=== PATIENT | male | born 1960 | race Caucasian/White ===

== ENCOUNTER 2020-09-29 09:05 | Outpatient (CLI) | payer OTHER | END 2020-09-29 09:06 | disposition home or self-care (01) | LOC: SCSMRI 09:05 | PROVIDERS: ATTEND Orthopaedic Surgery | DX: M47.26 Other spondylosis with radiculopathy, lumbar region (principal); M43.16 Spondylolisthesis, lumbar region | CPT/HCPCS: 72148 ==

== ENCOUNTER 2021-02-07 11:07 | Outpatient (CLI) | payer OTHER ==
[2021-02-07 12:58] LABS: Hemoglobin 12.6 g/dL (13.5-17.5); Mean Corpuscular HGB CONC 32.9 g/dL (32.0-36.0); Mean Corpuscular Hemoglobin 33.6 pg (27.0-33.0); Mean Corpuscular Volume 102.1 fl (81.2-95.1); Platelet Count 281 10x3/uL (150-450); RBC Distribution Width 14.9 % (11.5-14.5); Red Blood Cell (RBC) Count 3.75 10x6/uL (4.32-5.72); White Blood Cell (WBC) Count 7.9 10x3/uL (3.5-10.5)
[2021-02-07 13:10] LABS: PTT 26.4 sec (22.0-33.0); Prothrombin Time 10.6 sec (9.5-12.1)
[2021-02-07 13:17] LABS: Anion Gap 15 mmol/L (10-20); BUN (Urea Nitrogen) 16 mg/dL (8.4-25.7); Calc. Creatinine Clearance 0 mL/min (70-130); Calcium 9.3 mg/dL (7.8-10.44); Carbon Dioxide 23 mmol/L (23-31); Chloride 105 mmol/L (98-107); Glucose 153 mg/dL (80-115); Potassium 4.8 mmol/L (3.5-5.1); Sodium 138 mmol/L (136-145)
[2021-02-07 17:38] LABS: SARS-CoV-2 PCR by NAA Not Detected (NotDetected)
== END 2021-02-07 11:08 | disposition home or self-care (01) ==
LOC: LABBT 11:07
PROVIDERS: ATTEND Surgery
DX: Z01.818 Encounter for other preprocedural examination (principal); M51.26 Other intervertebral disc displacement, lumbar region; M48.062 Spinal stenosis, lumbar region with neurogenic claudication; Z20.822 Contact with and (suspected) exposure to COVID-19
CPT/HCPCS: 80048; 85027; 85610; 85730; 93005; 93010; U0003; U0005

== ENCOUNTER 2021-02-10 09:49 | Observation (INO) | payer OTHER ==
[2021-02-09 15:35] VITALS: BMI 32.5
[2021-02-10] MEDS ORDERED: Thrombin 5000 UNITS/5 ML VIAL ONE (10:32)
[2021-02-10] MEDS ORDERED: HYDROmorphone 0.5 MG/0.5 ML SYRINGE ONE (10:33)
[2021-02-10] MEDS ORDERED: Fentanyl 100 MCG/2 ML VIAL ONE ×3 (10:33→14:42)
[2021-02-10] MEDS ORDERED: Midazolam HCl 2 mg/2 ml Vial ONE (10:33)
[2021-02-10] MEDS ORDERED: Lidocaine 2% Jelly 5 ML TUBE ONE (10:34)
[2021-02-10] MEDS ORDERED: ceFAZolin 2 GM/DEX 5% 100 ML BAG ONE (10:37)
[2021-02-10] MEDS ORDERED: Rocuronium Bromide 10 MG/ML (10ML VIAL) ONE (11:01)
[2021-02-10] MEDS ORDERED: PROPOFOL 200 MG/20 ML VIAL ONE (11:01)
[2021-02-10] MEDS ORDERED: Glycopyrrolate 0.2 MG/ML 5 ML SYRINGE ONE (11:01)
[2021-02-10] MEDS ORDERED: Dexamethasone 20 MG/5 ML VIAL ONE (11:01)
[2021-02-10] MEDS ORDERED: Lidocaine 1% PF 5 ML VIAL ONE (11:01)
[2021-02-10] MEDS ORDERED: Ondansetron PF 4 MG/2 ML Vial ONE (11:01)
[2021-02-10] MEDS ORDERED: PHENYLEPHRINE-NS 100 MCG/ML 10 ML SYRINGE ONE (12:31)
[2021-02-10] MEDS ORDERED: Acetaminophen/Codeine 30-300mg Tablet PO PRN (14:09)
[2021-02-10] MEDS ORDERED: Acetaminophen 325 MG TAB PO PRN (14:09)
[2021-02-10] MEDS ORDERED: Ondansetron PF 4 MG/2 ML Vial IVP PRN (14:09)
[2021-02-10] MEDS ORDERED: tiZANidine HCl 4 MG TAB ONE (14:56)
[2021-02-10] MEDS: tiZANidine HCl 4 MG TAB PO PRN (14:58)
[2021-02-10] MEDS: Morphine 4 MG/ML VIAL SLOW IVP PRN ×2 (17:13→23:00)
[2021-02-10] MEDS: HYDROcodone/Acetaminophen 7.5/325 mg Tablet PO PRN ×2 (17:18→23:00)
[2021-02-10] MEDS: Icosapent Ethyl 1 GM CAPSULE PO SCH (18:52)
[2021-02-10] MEDS: Sodium Chloride 0.9% 1,000 ML IV SCH (18:52)
[2021-02-10] MEDS ORDERED: Atorvastatin Calcium 40 MG TAB PO SCH (21:00)
[2021-02-10] MEDS: Gabapentin 300 MG CAP PO SCH (21:12)
[2021-02-10] MEDS: traMADol HCl 50 MG TAB PO PRN (21:20)
[2021-02-10] MEDS: D5W IVPB SCH (21:42)
[2021-02-10] MEDS: ADMIXTURE FEE IVPB SCH (21:42)
[2021-02-10] MEDS: CEFAZOLIN SODIUM IVPB SCH (21:42)
[2021-02-11] MEDS: ADMIXTURE FEE IVPB SCH (02:51)
[2021-02-11] MEDS: D5W IVPB SCH (02:51)
[2021-02-11] MEDS: CEFAZOLIN SODIUM IVPB SCH (02:51)
[2021-02-11] MEDS: Sodium Chloride 0.9% 1,000 ML IV SCH (02:51)
[2021-02-11] MEDS ORDERED: Levothyroxine Sodium 75 MCG TAB PO SCH (06:00)
[2021-02-11] MEDS: traMADol HCl 50 MG TAB PO PRN (06:27)
[2021-02-11] MEDS ORDERED: Ascorbic Acid 500 mg Chewable Tablet PO SCH (09:00)
[2021-02-11] MEDS ORDERED: Zinc [Zinc] 50 MG Tablet PO SCH (09:00)
[2021-02-11] MEDS ORDERED: Magnesium Oxide 250 MG TAB PO SCH (09:00)
[2021-02-11] MEDS ORDERED: METFORMIN HCL PO SCH (09:00)
[2021-02-11] MEDS ORDERED: EMPAGLIFLOZIN PO SCH (09:00)
[2021-02-11] MEDS ORDERED: Lisinopril 10 MG TAB PO SCH (09:00)
[2021-02-11] MEDS ORDERED: Montelukast Sodium 10 mg Tablet PO SCH (09:00)
[2021-02-11] MEDS ORDERED: Cholecalciferol 1,000 UNITS (25 MCG) TAB PO SCH (09:00)
[2021-02-11] MEDS ORDERED: Stress 600 With Zinc 1 TAB PO SCH (09:00)
[2021-02-11] MEDS: Gabapentin 300 MG CAP PO SCH (10:07)
[2021-02-11] MEDS: HYDROcodone/Acetaminophen 7.5/325 mg Tablet PO PRN (10:09)
[2021-02-11] MEDS: tiZANidine HCl 4 MG TAB PO PRN (10:10)
[2021-02-11] MEDS: Icosapent Ethyl 1 GM CAPSULE PO SCH (10:11)
[2021-02-11 15:41] VITALS: BP 97/63; TEMP 98.3
== END 2021-02-11 14:33 | disposition home or self-care (01) ==
LOC: SDC 09:49 → SJJU 15:49
PROVIDERS: ADMIT Surgery; ATTEND Surgery
PROC: 01NB0ZZ Release Lumbar Nerve, Open Approach (ICD-10-PCS; principal; 2021-02-10)
DX: M48.062 Spinal stenosis, lumbar region with neurogenic claudication (principal); M47.26 Other spondylosis with radiculopathy, lumbar region; M51.16 Intervertebral disc disorders with radiculopathy, lumbar region; E88.2 Lipomatosis, not elsewhere classified; Z79.82 Long term (current) use of aspirin; Z79.84 Long term (current) use of oral hypoglycemic drugs; Z79.899 Other long term (current) drug therapy
CPT/HCPCS: 76000; 96365; 96375; 96376; G0378; J1100; J1170; J2250; J2270; J2405; J2704; J3010; J3370; J7050

== ENCOUNTER 2021-10-20 09:42 | Outpatient (CLI) | payer OTHER | END 2021-10-20 09:43 | disposition home or self-care (01) | LOC: BICRAD 09:42 | PROVIDERS: ATTEND Nurse Practitioner Family | DX: M43.06 Spondylolysis, lumbar region (principal); M47.816 Spondylosis without myelopathy or radiculopathy, lumbar region | CPT/HCPCS: 72110 ==

== ENCOUNTER 2023-01-26 12:34 | Outpatient (CLI) | payer OTHER | END 2023-01-26 12:35 | disposition home or self-care (01) | LOC: SCSCT 12:34 | PROVIDERS: ATTEND Nurse Practitioner Family | DX: M47.26 Other spondylosis with radiculopathy, lumbar region (principal); M47.817 Spondylosis without myelopathy or radiculopathy, lumbosacral region; M96.1 Postlaminectomy syndrome, not elsewhere classified | CPT/HCPCS: 72131 ==

== ENCOUNTER 2023-04-23 14:22 | Outpatient (CLI) | payer MEDICARE | END 2023-04-23 14:23 | disposition home or self-care (01) | LOC: SCSRAD 14:22 | PROVIDERS: ATTEND Nurse Practitioner Family | DX: M43.06 Spondylolysis, lumbar region (principal); M47.816 Spondylosis without myelopathy or radiculopathy, lumbar region; M46.06 Spinal enthesopathy, lumbar region; M89.38 Hypertrophy of bone, other site; M41.9 Scoliosis, unspecified; Z98.890 Other specified postprocedural states | CPT/HCPCS: 72120 ==

== ENCOUNTER 2023-12-24 11:28 | Outpatient (CLI) | payer MEDICARE | END 2023-12-24 11:29 | disposition home or self-care (01) | LOC: BICRAD 11:28 | PROVIDERS: ATTEND Physician Assistant | DX: M48.062 Spinal stenosis, lumbar region with neurogenic claudication (principal); M47.816 Spondylosis without myelopathy or radiculopathy, lumbar region; M43.16 Spondylolisthesis, lumbar region; Z98.890 Other specified postprocedural states | CPT/HCPCS: 72100 ==